=== PATIENT | male | born 2000 | race Caucasian/White ===

== ENCOUNTER 2020-10-03 17:27 | Emergency (ER) | payer OTHER ==
[2020-10-03 18:11] VITALS: BP 139/64; PULSE 62
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
== END 2020-10-03 19:30 | disposition home or self-care (01) ==
LOC: DL.ED 17:27
DX: S00.83XA Contusion of other part of head, initial encounter (principal); Z72.0 Tobacco use; Z91.09 Other allergy status, other than to drugs and biological substances; V49.40XA Driver injured in collision with unspecified motor vehicles in traffic accident, initial encounter; Y92.410 Unspecified street and highway as the place of occurrence of the external cause
CPT/HCPCS: 70450; 73030-LT; 99284-25

== ENCOUNTER 2025-02-08 10:18 | Emergency (ER) | payer OTHER ==
[2025-02-08 10:33] VITALS: BP 138/123; PULSE 119
[2025-02-08] MEDS: Ketorolac 30 MG/ML SDV IM ONE (10:38)
[2025-02-08] MEDS: Diphtheria,Pertussis(Acell),Tetanus Vaccine 0.5 ML Syringe IM ONE (12:43)
[2025-02-08] MEDS: Bacitracin Oint 1 GM U/D Packet TOP ONE (12:44)
== END 2025-02-08 12:54 | disposition home or self-care (01) ==
LOC: DL.ED 10:18
DX: S62.665B Nondisplaced fracture of distal phalanx of left ring finger, initial encounter for open fracture (principal); S69.92XA Unspecified injury of left wrist, hand and finger(s), initial encounter; Z23 Encounter for immunization; Z91.09 Other allergy status, other than to drugs and biological substances; Z79.899 Other long term (current) drug therapy; W19.XXXA Unspecified fall, initial encounter
CPT/HCPCS: 12001; 73130; 90471; 90715; 96372; 99283; A9270; J1885; J2003; J2270